=== PATIENT | male | born 1990 | race African-American/Black ===

== ENCOUNTER 2016-10-06 23:30 | Emergency (ER) ==
[2016-10-06 23:40] VITALS: BP 152/93; TEMP 98.7; BMI 24.4
[2016-10-07 00:02] LABS: BASOPHILS % (AUTO) 0.5 % (0.0-3.0); EOSINOPHILS # (AUTO) 0.2 K/ul (0.0-0.7); EOSINOPHILS % (AUTO) 2.4 % (0.0-7.0); HEMATOCRIT 42.4 % (42.0-52.0); HEMOGLOBIN 14.4 g/dl (14.0-18.0); IMMATURE GRANULOCYTE % (AUTO) 0.2 % (0.0-5.0); LYMPHOCYTES # (AUTO) 3.1 K/uL (0.60-3.4); LYMPHOCYTES % (AUTO) 48.1 (10.0-50.0); MEAN CORPUSCULAR HEMOGLOBIN 29.4 pg (27.0-31.0); MEAN CORPUSCULAR VOLUME 86.5 fl (80.0-94.0); MONOCYTES # (AUTO) 0.6 K/uL (0.4-2.0); NEUTROPHILS # (AUTO) 2.5 K/ul (2.0-6.9); NEUTROPHILS % (AUTO) 38.8; PLATELET COUNT 227 10^3/uL (140-440); WHITE BLOOD COUNT 6.38 K/ul (4.2-10.2)
[2016-10-07 00:18] LABS: BILIRUBIN,URINE Negative (NEGATIVE); KETONES,URINE Negative (NEGATIVE); LEUKOCYTE ESTERASE ,URINE 3+ (NEGATIVE); NITRITE,URINE Negative (NEGATIVE); PROTEIN,URINE Negative (NEGATIVE); URINE, BLOOD Trace-intact (NEGATIVE)
[2016-10-07 00:19] LABS: ADD URINE MICROSCOPIC YES
[2016-10-07 00:23] LABS: ALBUMIN/GLOBULIN RATIO 1.14; ANION GAP 11.9; BILIRUBIN,TOTAL 0.58 mg/dL (0.00-1.20); BUN/CREATININE RATIO 9.24; CALCIUM 8.8 mg/dL (8.2-10.2); CREATININE 1.19 mg/dL (0.60-1.10); POTASSIUM 3.9 mmol/L (3.5-5.1); TOTAL PROTEIN 7.5 g/dL (6.4-8.2)
--- NOTE | 2016-10-07 00:24 | CT ---
Exam: CT of the abdomen pelvis without contrast History: Flank pain Technique: [address] of the abdomen and pelvis without intravascular contrast FINDINGS: The lung bases are clear. Paucity of intra-abdominal fat is somewhat technically inhibit ing. The appendix is normal. Bowel loops demonstrate normal caliber. No inflamatory change seen in the mesentery or retroperitoneum. Kidneys and proximal collecting system are unremarkable. Vascular structures appear normal by noncontrast CT. Pelvic genitourinary structures appear normal. Pelvic bowel loops are unremarkable. No inflammatory change in the pelvic fat. No acute abnormality of the abdominal or pelvic skeleton. Impression: 1. No inflammatory process, bowel or urinary obstruction is seen. No acute findings of the abdomen or pelvis.
[2016-10-07] MEDS ORDERED: TYLENOL PO STA (00:27)
[2016-10-07] MEDS ORDERED: CIPRO PO STA (00:27)
[2016-10-07] MEDS ORDERED: TYLENOL ONE (00:30)
[2016-10-07] MEDS ORDERED: CIPRO ONE (00:31)
--- NOTE | 2016-10-07 00:31 | ED.PDOC ---
General ED Provider: Dr. RACHEAL LOPES-ER Chief Complaint: Back Pain Stated Complaint: it hurts when i pee and my back hurts Time Seen by Physician: 23:35 Mode of Arrival: Walk-In Information Source: Patient Exam Limitations: No limitations Nursing and Triage Documentation Reviewed and Agree: Yes Complaint Exam - Complaint/Exam Patient Complains of: Reports: Dysuria Onset/Duration: 30 min Symptoms Are: Still present Timing: Intermittent Initial Severity: Mild Current Severity: Mild Location of Pain: Reports: Left, Flank, Suprapubic Character: Reports: Burning, Dull Aggravating: Reports: Voiding Alleviating: Reports: None Associated Signs and Symptoms: Reports: Dysuria. Denies: Diaphoresis, Back pain , Fever, Hematuria, Constipation, Blood in stool, Rectal pain, Appetite change, Nausea, Vomiting, Penile swelling, Penile discharge, Decreased urine output, Increased urine frequency, Increased thirst, Decreased activity, Lethargy, Scrotal pain, Scrotal swelling, Abdominal Pain Abdominal Findings: Present: None Differential Diagnoses: Pyelonephritis, Other Review of Systems - Review Of Systems Constitutional: Reports: No symptoms Eyes: Reports: No symptoms Ears, Nose, Mouth, Throat: Reports: No symptoms Respiratory: Reports: No symptoms Cardiac: Reports: No symptoms GI: Reports: No symptoms : Reports: Dysuria, Flank pain, Pain Musculoskeletal: Reports: No symptoms Skin: Reports: No symptoms Neurological: Reports: No symptoms Endocrine: Reports: No symptoms Hematologic/Lymphatic: Reports: No symptoms All Other Systems: Reviewed and Negative Past Medical History - Past Medical History Endocrine: Reports: Other Cardiovascular: Reports: Other Respiratory: Reports: Other Hematological: Reports: Other Gastrointestinal: Reports: Other Genitourinary: Reports: Other Neuro/Psych: Reports: Other Musculoskeletal: Reports: Other Cancer: Reports: Other - Surgical History General Surgical History: Reports: Unknown - Family History Family History: Reports: Unknown - Social History Smoking Status: Current every day smoker, Heavy tobacco smoker Hx Substance Use: Yes (SMOKES WEED OCCASIONALLY) Alcohol Screening: Occasionally Lives: With family - Immunizations Tetanus Shot up to Date: Yes Physical Exam - Physical Exam Appearance: Well-appearing, No pain distress, Well-nourished Pain Distress: Mild Eyes: FACUNDO, EOMI, Conjunctiva clear ENT: Ears normal, Nose normal, Oropharynx normal Neck: Supple Respiratory: Airway patent Cardiovascular: RRR, Pulses normal, No rub, No murmur GI/: Soft, Nontender, No masses, Bowel sounds normal, No Organomegaly Musculoskeletal: Normal strength, ROM intact, No edema, No calf tenderness Skin: Warm, Dry, Normal color Neurological: Sensation intact Psychiatric: Affect appropriate, Mood appropriate Interpretation - Radiology Interpretation Radiology Interpretation By: Radiologist Radiology Results: Negative Exam Interpreted: CT Scan Critical Care Note - Critical Care Note Total Time (mins): 0 Course - Course Hematology/Chemistry: 10/06/16 00:00 10/06/16 00:00 Orders, Labs, Meds: Lab Review 10/06/16 00:00 WBC 6.38 RBC 4.90 Hgb 14.4 Hct 42.4 MCV 86.5 MCH 29.4 MCHC 34.0 RDW Coeff of [place] 13.3 Plt Count 227 Immature Gran % (Auto) 0.2 Neut % (Auto) 38.8 Lymph % (Auto) 48.1 [place] % (Auto) 10.0 Eos % (Auto) 2.4 Baso % (Auto) 0.5 Immature Gran # (Auto) 0.0 Neut # 2.5 Lymph # 3.1 [place] # 0.6 Eos # 0.2 Baso # 0.0 Sodium 137 Potassium 3.9 Chloride 103 Carbon Dioxide 26 Anion Gap 11.9 BUN 11 Creatinine 1.19 H Estimated GFR (MDRD) 91.00 BUN/Creatinine Ratio 9.24 Glucose 100 Calcium 8.8 Total Bilirubin 0.58 AST 76 H ALT 47 Alkaline Phosphatase 85 Total Protein 7.5 Albumin 4.0 Globulin 3.5 Albumin/Globulin Ratio 1.14 Amylase 47 Lipase 19 Urine Color Yellow Urine Clarity Slightly Urine pH 7.0 Ur Specific [place] 1.015 Urine Protein Negative Urine Glucose (UA) Negative Urine Ketones Negative Urine Blood Trace-intact Urine Nitrite Negative Urine Bilirubin Negative Urine Urobilinogen 0.2 Ur Leukocyte Esterase 3+ Urine Microscopic RBC 0-2 Urine Microscopic WBC 10-20 Ur Squamous Epith Cells Not present Orders Category Date Time Status AMYLASE Stat LAB 10/06/16 00:00 Completed BLOOD CULTURE Stat LAB 10/06/16 00:00 Received CBC W/ AUTO DIFF Stat LAB 10/06/16 00:00 Completed COMPREHENSIVE METABOLIC PANEL Stat LAB 10/06/16 00:00 Completed LIPASE Stat LAB 10/06/16 00:00 Completed URINALYSIS C & S IF INDICATED Stat LAB 10/06/16 00:00 Completed URINE CULTURE Stat LAB 10/07/16 00:19 Received Acetaminophen [Tylenol] MEDS 10/07/16 00:27 Stat 650 mg PO ONCE STA Ciprofloxacin HCl [Cipro] MEDS 10/07/16 00:27 Stat 500 mg PO ONCE STA CT ABDOMEN/PELVIS WO CONTRAST Stat RADS 10/06/16 23:50 Completed Medications Generic Name Dose Route Start Last Admin Trade Name Rickieq PRN Reason Stop Dose Admin Acetaminophen 650 mg 10/07/16 00:27 Tylenol PO 10/07/16 00:28 ONCE STA Ciprofloxacin 500 mg 10/07/16 00:27 Cipro PO 10/07/16 00:28 ONCE STA the pateint refuses any pain meds Vital Signs: Temp Pulse Resp BP Pulse Ox 10/06/16 23:31 98.7 F 86 18 152/93 H 100 Departure - Departure Time of Disposition: 00:32 Disposition: HOME SELF-CARE Discharge Problem: UTI (urinary tract infection) Qualifiers: Urinary tract infection type: site unspecified Hematuria presence: without hematuria Qualifier Code: (N39.0) Urinary tract infection, site not specified Instructions: Urinary Tract Infection in Men (ED) Condition: Good Pt referred to PMD for follow-up: Yes Additional Instructions: cipro 500mg bid x 10 days--push fluids--since you dont want pain meds--i suggest tylenol or motrin for pain relief--f/u with pcp this week to recheck urine Allergies/Adverse Reactions: Allergies No Known Allergies Allergy (Verified 10/06/16 23:40) Home Medications: Ambulatory Orders 1 [No Reported Medications] 10/11/14
== END 2016-10-07 00:40 | disposition home or self-care (01) ==
LOC: ED 23:30
DX: N39.0 Urinary tract infection, site not specified (principal); F17.210 Nicotine dependence, cigarettes, uncomplicated
CPT/HCPCS: 36415; 80053; 81001; 82150; 83690; 85025; 87040; 87086; 99283

== ENCOUNTER 2017-08-30 10:00 | Emergency (ER) ==
[2017-08-30 10:08] VITALS: BP 147/84; TEMP 98.1; BMI 27.1
--- NOTE | 2017-08-30 10:58 | CT ---
EXAM: CT abdomen pelvis without contrast TECHNIQUE: Helical axial CT of the abdomen and pelvis was performed without contrast with coronal an d sagittal reconstructions. COMPARISON: CT pelvis from 10/06/2016 HISTORY: Gross hematuria FINDINGS: There is no mesenteric inflammation, free air, free fluid or bowel wall thickening or edema or pathol ogic lymph nodes or obstruction or ileus. The liver, spleen, pancreas,and adrenal glands show no acute abnormality. Lung bases are well-aerate d. There is no hiatal hernia. The gallbladder is normal with no stones or inflammation. There is no biliary or pancreatic ductal dilatation. There are no suspicious renal masses or large cysts and no hydronephrosis. There are no kidney stones . Both ureters demonstrate normal course and caliber. There is no filling defect in the urinary blad aan. Urinary bladder is decompressed. There are noted to be calcification seen within the base of the penis which were not present on the previous examination. These do not appear to be in the urethra however. The appendix is not identified. There are no colonic diverticula. There are no abdominal wall hernia s. The aorta is normal with no aneurysm or calcific atherosclerosis. There are no acute osseous abnor malities. 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 IMPRESSION: 1. Calcifications within the base of the penis as described which were not present on the previous e xam which do not appear to be in the urethra. Recommend correlation with the clinical presentation t o assess the relevance of this finding. 2. No evidence for renal or ureteral stone. 3. Bilateral pars defects at L4.
--- NOTE | 2017-08-30 11:06 | ED.PDOC ---
General ED Provider: Dr. RACHEAL LOPES-ER Chief Complaint: Urinary Problem Stated Complaint: im peeing blood Time Seen by Physician: 10:05 Mode of Arrival: Walk-In Information Source: Family Exam Limitations: No limitations Nursing and Triage Documentation Reviewed and Agree: Yes Reviewed sepsis parameters & appropriate labs ordered?: Yes System Inflammatory Response Syndrome: Not Applicable Sepsis Protocol: For patient's 13 years and over: Temp is 96.8 and below OR 101 and greater Pulse >90 BPM Resp >20/minute Acutely Altered Mental Status Are patient's symptoms suggestive of a new infection, such as: -Pneumonia -Skin, Soft Tissue -Endocarditis -UTI -Bone, Joint Infection -Implantable Device -Acute Abdominal Infection -Wound Infection -Meningitis -Blood Stream Catheter Infection -Unknown Complaint Exam - UTI Female Complaint/Exam Patient Complains of: Reports: Blood in urine Onset/Duration: 24 hrs Symptoms Are: Still present Timing: Constant Initial Severity: Mild Current Severity: Mild Location of Pain: Reports: None Associated Signs and Symptoms: Denies: Fever, Chills, Flank pain, Dyspareunia, Vaginal discharge CVA Tenderness: No Suprapubic Tenderness: No Differential Diagnoses: Cystitis Review of Systems - Review Of Systems Constitutional: Reports: No symptoms Eyes: Reports: No symptoms Ears, Nose, Mouth, Throat: Reports: No symptoms Respiratory: Reports: No symptoms Cardiac: Reports: No symptoms GI: Reports: No symptoms : Reports: Hematuria Musculoskeletal: Reports: No symptoms Skin: Reports: No symptoms Neurological: Reports: No symptoms Endocrine: Reports: No symptoms Hematologic/Lymphatic: Reports: No symptoms All Other Systems: Reviewed and Negative Past Medical History - Past Medical History Previously Healthy: Yes Endocrine: Reports: Other Cardiovascular: Reports: Other Respiratory: Reports: Other Hematological: Reports: Other Gastrointestinal: Reports: Other Genitourinary: Reports: Other Neuro/Psych: Reports: Other Musculoskeletal: Reports: Other Cancer: Reports: Other - Surgical History General Surgical History: Reports: Unknown - Family History Family History: Reports: Unknown - Social History Smoking Status: Current some day smoker Hx Substance Use: Yes ([place]) Alcohol Screening: None - Immunizations Tetanus Shot up to Date: Yes Physical Exam - Physical Exam Appearance: Well-appearing, No pain distress, Well-nourished Eyes: FACUNDO, EOMI, Conjunctiva clear ENT: Ears normal, Nose normal, Oropharynx normal Neck: Supple Respiratory: Airway patent, Breath sounds clear, Breath sounds equal, Respirations nonlabored Cardiovascular: RRR, Pulses normal, No rub, No murmur GI/: Soft, Nontender, No masses, Bowel sounds normal, No Organomegaly Musculoskeletal: Normal strength, ROM intact, No edema, No calf tenderness Skin: Warm, Dry, Normal color Neurological: Sensation intact Psychiatric: Affect appropriate, Mood appropriate Interpretation - Radiology Interpretation Radiology Interpretation By: Radiologist Radiology Results: Negative Exam Interpreted: CT Scan Critical Care Note - Critical Care Note Total Time (mins): 0 Course - Course Hematology/Chemistry: 08/30/17 10:13 08/30/17 10:13 Orders, Labs, Meds: Lab Review 08/30/17 08/30/17 08/30/17 10:13 10:13 10:20 WBC 8.63 RBC 5.24 Hgb 15.7 Hct 44.9 MCV 85.7 MCH 30.0 MCHC 35.0 RDW Coeff of [place] 13.4 Plt Count 283 Immature Gran % (Auto) 0.1 Neut % (Auto) 64.6 Lymph % (Auto) 27.3 [place] % (Auto) 6.1 Eos % (Auto) 1.3 Baso % (Auto) 0.6 Immature Gran # (Auto) 0.0 Neut # 5.6 Lymph # 2.4 [place] # 0.5 Eos # 0.1 Baso # 0.1 Sodium 138 Potassium 4.2 Chloride 104 Carbon Dioxide 24 Anion Gap 14.2 BUN 17 Creatinine 1.05 Estimated GFR (MDRD) 104.00 BUN/Creatinine Ratio 16.19 Glucose 114 H Calcium 9.5 Total Bilirubin 0.4 AST 15 ALT 16 Alkaline Phosphatase 89 Total Protein 7.9 Albumin 3.9 Globulin 4.0 Albumin/Globulin Ratio 0.98 Urine Color Light Urine Clarity Cloudy Urine pH 7.5 Ur Specific [place] 1.020 Urine Protein Negative Urine Glucose (UA) Negative Urine Ketones Negative Urine Blood 2+ Urine Nitrite Negative Urine Bilirubin Negative Urine Urobilinogen 0.2 Ur Leukocyte Esterase 3+ Urine Microscopic RBC 0-2 Urine Microscopic WBC 50-100 Ur Squamous Epith Cells Not present Urine Bacteria Trace Orders Category Date Time Status CBC W/ AUTO DIFF Stat LAB 08/30/17 10:13 Completed COMPREHENSIVE METABOLIC PANEL Stat LAB 08/30/17 10:13 Completed URINALYSIS C & S IF INDICATED Stat LAB 08/30/17 10:20 Completed URINE CULTURE Stat LAB 08/30/17 10:[address] ABDOMEN/PELVIS WO CONTRAST Stat RADS 08/30/17 10:05 Completed Vital Signs: Temp Pulse Resp BP Pulse Ox 08/30/17 10:01 98.1 F 92 H 16 147/84 H 95 Departure - Departure Time of Disposition: 11:05 Disposition: HOME SELF-CARE Discharge Problem: UTI (urinary tract infection) Qualifiers: Urinary tract infection type: acute cystitis Hematuria presence: with hematuria Qualified Code(s): N30.01 - Acute cystitis with hematuria Instructions: Urinary Tract Infection in Men (ED) Condition: Good Pt referred to PMD for follow-up: Yes IPMP verified?: No Additional Instructions: bactrim ds bid x 10 days--fluids--get referral to pcp so you can get referral to urology about ct scan abnormality concerning penis Allergies/Adverse Reactions: Allergies No Known Allergies Allergy (Verified 08/30/17 10:08) Home Medications: Ambulatory Orders 1 [No Reported Medications] 10/11/14 Disposition Discussed With: Patient, Family
== END 2017-08-30 11:15 | disposition home or self-care (01) ==
LOC: ED 10:00
DX: N30.01 Acute cystitis with hematuria (principal); F17.210 Nicotine dependence, cigarettes, uncomplicated
CPT/HCPCS: 36415; 80053; 81001; 85025; 87086; 99283